=== PATIENT | male | born 1995 ===

== ENCOUNTER 2016-12-25 16:26 | Emergency (ER) | payer OTHER ==
[2016-12-25 17:43] VITALS: BP 119/68
[2016-12-25] MEDS ORDERED: Ibuprofen TAB* 600 MG PO ONE (17:48)
--- NOTE | 2016-12-25 17:51 | UC ---
Throat Pain/Nasal Scar HPI - HPI Summary HPI Summary: 21 year old male with complaints of 4 - 5 days of sore throat and fever. Now has a headache and nausea. [place] very tired and slept all day. - History of Current Complaint Chief Complaint: UCGeneralIllness Stated Complaint: SORE THROAT,CONGESTION,NAUSEA Time Seen by Provider: 12/25/16 17:23 Hx Obtained From: Patient Onset/Duration: Sudden Onset, Lasting Days - 4-5, Still Present Severity: Moderate Pain Scale Used: 0-10 Numeric - 5 Cough: None Associated Signs & Symptoms: Positive: Dysphagia, Nasal Discharge, Fever. Negative: FB Sensation, Drooling, Wheezing, Hoarseness, Sinus Discomfort, Vomiting, Rash - Epiglottits Risk Factors Epiglottis Risk Factors: Negative PMH/Surg Hx/FS Hx/Imm Hx Previously Healthy: Yes Endocrine History Of: Denies: Diabetes Cardiovascular History Of: Denies: Cardiac Disorders Respiratory History Of: Denies: Asthma - Surgical History Surgical History: None - Family History Known Family History: Negative: Hypertension, Diabetes - Social History Occupation: Student - [employer] Lives: With Family Alcohol Use: None Substance Use Type: None Smoking Status (MU): Never Smoked Tobacco Have You Smoked in the Last Year: No Review of Systems Constitutional: Fever, Chills, Fatigue Skin: Negative Eyes: Negative ENT: Sore Throat, Nasal Discharge Respiratory: Negative Cardiovascular: Negative Gastrointestinal: Other - nausea Genitourinary: Negative Motor: Negative Neurovascular: Negative Musculoskeletal: Myalgia Neurological: Headache Psychological: Negative All Other Systems Reviewed And Are Negative: Yes Physical Exam Triage Information Reviewed: Yes Appearance: No Pain Distress, Well-Nourished, Ill-Appearing - mildly Vital Signs: Initial Vital Signs Temp 99.3 F 12/25/16 17:41 Pulse 97 12/25/16 17:41 Resp 16 12/25/16 17:41 BP 119/68 12/25/16 17:41 Pulse Ox 98 12/25/16 17:41 Vital Signs Reviewed: Yes Eyes: Positive: Conjunctiva Clear. Negative: Discharge ENT: Positive: Hearing grossly normal, Pharyngeal erythema, Nasal congestion, TMs normal, Tonsillar swelling - 3+ bilaterally. Negative: Nasal drainage Neck: Positive: Supple, Nontender, Enlarged Nodes @ - bilateral AC and Left PC Respiratory: Positive: Lungs clear, Normal breath sounds, No respiratory distress. Negative: Crackles, Wheezing Cardiovascular: Positive: RRR, No Murmur Abdomen Description: Positive: Nontender, No Organomegaly. Negative: CVA Tenderness (R), CVA Tenderness (L), Distended, Guarding Musculoskeletal: Positive: Strength Intact, ROM Intact Neurological: Positive: Alert, Muscle Tone Normal Psychological: Positive: Age Appropriate Behavior - pleasant and cooperative Skin: Negative: rashes, breakdown Throat Pain/Nasal Course/Dx - Course Assessment/Plan: Rapid Strep - negative. [place] pending - Differential Dx/Diagnosis Differential Diagnosis/HQI/PQRI: Pharyngitis, URI Provider Diagnoses: Pharyngitis. URI Discharge - Discharge Plan Condition: Stable Disposition: HOME Patient Education Materials: Pharyngitis (ED), Mononucleosis (ED) Additional Instructions: Follow up with your student health services if you are not feeling much better in the next 3 - 5 days
[2016-12-25 19:26] LABS: EBV Response YES
[2016-12-25 19:41] LABS: Hematocrit 48 % (42-52); Hemoglobin 15.7 g/dl (14.0-18.0); Mean Corpuscular HGB Conc 33 g/dl (31-36); Mean Corpuscular Hemoglobin 30 pg (27-31); Mean Corpuscular Volume 91 fL (80-94); Mean Platelet Volume 10 um3 (7.4-10.4); Red Blood Count 5.26 10^6/ul (4.0-5.4); Red Cell Distribution Width 13 % (10.5-15); White Blood Count 7.4 10^3/ul (3.5-10.8)
[2016-12-25 19:53] LABS: Mono Internal Control QC Line Present
[2016-12-27 12:47] LABS: EBV Capsid Ag IgG Ab Positive (Negative); EBV Capsid Ag IgM Ab Negative (Negative)
== END 2016-12-25 18:19 | disposition home or self-care (01) ==
LOC: UCCORT 16:26
DX: J02.9 Acute pharyngitis, unspecified (principal); J06.9 Acute upper respiratory infection, unspecified
CPT/HCPCS: 36415; 85025; 86308; 86664; 86665; 87651; 99201; A9270-GY; G0463

== ENCOUNTER 2017-02-23 11:21 | Emergency (ER) | payer OTHER ==
[2017-02-23] MEDS ORDERED: Ibuprofen TAB* 600 MG PO ONE (12:56)
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
--- NOTE | 2017-02-23 13:17 | RAD ---
HISTORY: Left-sided mandibular pain and swelling COMPARISONS: None TECHNIQUE: Multiple contiguous axial CT scans were obtained of the face without intravenous contrast, with coronal and sagittal multiplanar reformations. FINDINGS: BONES: There is a nondisplaced fracture of the angle of the left mandible that extends to the alveolar process of the left mandibular molars. Evaluation is limited, though there is likely a fracture through the last molar ORBITS: The globes are round. The optic nerves are symmetric. The extraocular musculature is normal. There is no post septal or intraconal inflammatory change. There is no retrobulbar hematoma. PARANASAL SINUSES: The paranasal sinuses are clear. BRAIN AND SOFT TISSUE: There is asymmetric enlargement of the masseter on the left. There is stranding of the subcutaneous fat with thickening of the platysma fascia. OTHER: None. IMPRESSION: THERE IS A NONDISPLACED DISPLACED FRACTURE OF THE ANGLE OF LEFT MANDIBLE THAT EXTENDS TO THE ALVEOLAR PROCESSES OF THE LEFT MANDIBULAR MOLARS. THERE IS LIKELY A FRACTURE THROUGH THE LAST MOLAR ON THE LEFT. THERE IS ASSOCIATED SUBCUTANEOUS EDEMA AND ENLARGEMENT OF THE LEFT MASSETER MUSCLE.
[2017-02-23 13:43] VITALS: BP 140/85
== END 2017-02-23 13:53 | disposition home or self-care (01) ==
LOC: UCCORT 11:21
DX: S02.652A Fracture of angle of left mandible, initial encounter for closed fracture (principal); S02.5XXA Fracture of tooth (traumatic), initial encounter for closed fracture; Y04.2XXA Assault by strike against or bumped into by another person, initial encounter; Y93.9 Activity, unspecified; Y92.29 Other specified public building as the place of occurrence of the external cause
CPT/HCPCS: 70486; 99212; A9270-GY; G0463